=== PATIENT | male | born 1965 | race Caucasian/White ===

== ENCOUNTER 2020-02-01 01:07 | Outpatient (CLI) | payer OTHER, SELFPAY ==
[2020-02-01 18:42] LABS: SARS-CoV-2 RNA PCR Negative
== END 2020-02-01 01:08 | disposition home or self-care (01) ==
LOC: ANHCOVIDDT 01:07
PROVIDERS: Visit Provider Internal Medicine Gastroenterology
DX: Z01.812 Encounter for preprocedural laboratory examination (principal); Z20.828 Contact with and (suspected) exposure to other viral communicable diseases
CPT/HCPCS: 87635; C9803; U0003

== ENCOUNTER 2020-02-03 01:50 | Day surgery (SDC) | payer OTHER, SELFPAY ==
[2020-01-19 14:31] VITALS: BMI 28.1
[2020-01-30 14:22] VITALS: BMI 28.1
[2020-02-03 10:06] VITALS: BP 131/103; PULSE 85; RESP 16; TEMP 36.6; O2SAT 99; BMI 26.8
[2020-02-03] MEDS: LACTATED RINGERS 1,000 ML 150 ML IV CONT (10:15)
--- NOTE | 2020-02-03 10:18 | PM.HPGS ---
History of Present Illness History of Present Illness Consent: Risks, benefits, and alternatives have been discussed and questions answered. Patient agrees to proceed with procedure. Chief complaint: Neoplasm Screening Narrative: Eric Patrick is a 54 year old male referred for screening colonoscopy Meds Home Medications and Allergies Home Medications Medication Instructions Recorded Confirmed Type No Home Medications 01/19/20 01/19/20 History Allergies Allergy/AdvReac Type Severity Reaction Status Date / Time No Known Allergies Allergy Verified 02/03/20 10:05 Vital Signs Vital Signs - 24 hr 02/03/20 10:06 Temperature 36.6 C Pulse Rate 85 Respiratory Rate 16 Blood Pressure 131/103 H Pulse Oximetry 99 Exam Resp: Auscultation: clear to auscultation bilaterally Cardio: Rate: regular rate Rhythm: regular rhythm GI: GI Palp: Yes Soft to palpation and No Tenderness to palpation present (GI) Assessment and Plan Assessment and plan (1) Colon cancer screening: Code(s): Z12.11 - Encounter for screening for malignant neoplasm of colon Status: Acute Assessment and Plan: Colonoscopy with possible biopsy or polypectomy or cautery or injection of substances.
--- NOTE | 2020-02-03 10:23 | WPDANESEPPF ---
Anes - Initial Pre Proc Eval Procedure: Operation Date: 02/03/20 10:30 Proposed Procedures p Screening Colonoscopy - Jarrett Kinney MD Date/Time: 02/03/20 10:23 Surgeon: Jarrett Kinney MD Pre Op Diagnosis: Neoplasm Screening Patient Data Age: 54 Gender: M Height: 5 ft 8 in Weight: 80 kg Last Vital Signs Temp 97.8 F 02/03/20 10:06 Pulse 85 02/03/20 10:06 Resp 16 02/03/20 10:06 BP 131/103 H 02/03/20 10:06 Pulse Ox 99 02/03/20 10:06 Allergies Allergy/AdvReac Type Severity Reaction Status Date / Time No Known Allergies Allergy Verified 02/03/20 10:05 Home Medications Medication Instructions Recorded Confirmed Type No Home Medications 01/19/20 01/19/20 History Patient hx anesthesia problems: none Family hx anesthesia problems: none PMFSH Past Medical History Medical History (Updated 02/03/20 @ 10:23 by Giovanni Rojas MD) Healthy adult Anes - Eval Final PreProcedure Day of Procedure 02/03/20 10:23 Patient weight: normal Heart: regular rate and rhythm Lungs: clear to auscultation Airway: Mallampati scale class II Neurological: alert and oriented Last oral intake: >/= 8 hours ASA classification: I Emergent: no Anesthetic plan: proceed Anesthesia type and monitoring: general GIVS and standard monitoring Informed Consent: The patient's anesthetic plan and its attendant risks and benefits were discussed with the patient/family/POA. Questions were solicited and answers provided to the satisfaction of the patient/family/POA.
[2020-02-03] MEDS: SIMETHICONE ORAL SUSPENSION 20 MG/0.3 ML 30 ML BOTTLE 0.6 ML IRRIGATION (10:32)
[2020-02-03 10:42] VITALS: BP 83/51; PULSE 66; RESP 13; O2SAT 97
[2020-02-03 10:52] VITALS: BP 107/61; PULSE 75; RESP 19; O2SAT 98
[2020-02-03 11:02] VITALS: BP 107/81; PULSE 66; RESP 21; O2SAT 99
== END 2020-02-03 11:13 | disposition home or self-care (01) ==
PROVIDERS: PCP Internal Medicine; Visit Provider Internal Medicine Gastroenterology
PROC: 0DJD8ZZ Inspection of Lower Intestinal Tract, Via Natural or Artificial Opening Endoscopic (ICD-10-PCS; CPT 45378; principal; 2020-02-03 10:30)
DX: Z12.11 Encounter for screening for malignant neoplasm of colon (principal)
CPT/HCPCS: G0121; J2704; J7120